=== PATIENT | female | born 1970 | race Two or more races ===

== ENCOUNTER 2019-04-30 15:41 | Inpatient (IN) | payer MEDICARE, OTHER ==
[~2019-04-30] VITALS: Ht 162.6 cm; Wt 90.7 kg
--- NOTE | 2019-04-30 16:13 | NUR ---
PATIENT EVALUATED BY DOCTOR IRIZARRY. PATIENT STATES HAD A RECENT HOSPITAL STAY AT [facility]
--- NOTE | 2019-04-30 16:16 | NUR ---
PATIENT HAS ABDOMINAL DIALYSIS CATHETER
[2019-04-30 16:21] LABS: BASOPHILS # (AUTO) 0.1 K/uL (0.0-8.0); BASOPHILS % (AUTO) 0.6 % (0.0-2.0); EOSINOPHILS # (AUTO) 0.4 K/uL (0.0-0.7); LYMPHOCYTES # (AUTO) 1.4 K/uL (20.0-40.0); LYMPHOCYTES % (AUTO) 13.7 % (20.5-51.5); MEAN CORPUSCULAR HEMOGLOBIN 34.3 uug (24.7-32.8); MEAN CORPUSCULAR HGB CONC 34 g/dL (32.3-35.6); MEAN CORPUSCULAR VOLUME 100.5 fL (75.5-95.3); MONOCYTES # (AUTO) 0.9 K/uL (2.0-10.0); MONOCYTES % (AUTO) 8.3 % (0.0-11.0); NEUTROPHILS # (AUTO) 7.5 K/uL (1.8-8.9); NEUTROPHILS % (AUTO) 73.4 % (38.5-71.5); PLATELET COUNT (AUTO) 188 K/uL (179-408); WHITE BLOOD COUNT (AUTO) 10.2 K/uL (3.8-11.8)
[2019-04-30 16:30] LABS: POTASSIUM 4.5 mmol/L (3.5-5.1)
--- NOTE | 2019-04-30 16:31 | NUR ---
CRITICAL LABS REPORTED. CREATINIE 12.5 AND HGB 6.4 INFORMED DOCTOR JUAN C.
[2019-04-30 16:32] LABS: HEMATOCRIT 18.7 % (31.2-41.9); HEMOGLOBIN 6.4 g/dL (10.9-14.3); RED BLOOD CELL COUNT(AUTO) 1.86 MIL/uL (3.63-4.92)
[2019-04-30 16:33] LABS: CREATININE 12.5 mg/dL (0.6-1.3)
[2019-04-30 16:35] LABS: BILIRUBIN,DIRECT 0.2 mg/dL (0.0-0.2); BILIRUBIN,TOTAL 0.6 mg/dL (0.2-1.0); TOTAL PROTEIN, SERUM 6.7 g/dL (6.4-8.2)
[2019-04-30 16:55] LABS: BAND % (MANUAL) 3 % (0-10); NEUTROPHILS % (MANUAL) 73 % (42-75)
[2019-04-30] MEDS ORDERED: HYDR-3974 PO (16:55)
[2019-04-30] MEDS ORDERED: ERGO2000 PO (16:55)
[2019-04-30] MEDS ORDERED: AMLO5TAB9 PO (16:55)
[2019-04-30] MEDS ORDERED: FURO-151 PO (16:55)
[2019-04-30] MEDS ORDERED: CARV25TA2 PO (16:55)
[2019-04-30] MEDS ORDERED: RANI150C4 PO (16:55)
[2019-04-30] MEDS ORDERED: ATOR80TA PO (16:55)
[2019-04-30] MEDS ORDERED: CALC667C6 PO (16:55)
[2019-04-30] MEDS ORDERED: INSU100I26 SQ (16:55)
[2019-04-30] MEDS ORDERED: AMOX1TAB16 PO (16:55)
[2019-04-30] MEDS ORDERED: BLOO-140 IN (16:55)
[2019-04-30] MEDS ORDERED: CALC600T12 PO (16:55)
[2019-04-30] MEDS ORDERED: ASPI81TA31 PO (16:55)
[2019-04-30] MEDS ORDERED: LORA10TA7 PO (16:55)
[2019-04-30] MEDS ORDERED: DOCU100C36 PO (16:55)
[2019-04-30 16:56] LABS: EOSINOPHILS % (MANUAL) 4 % (0-8); LYMPHOCYTES % (MANUAL) 14 % (20-40); MONOCYTES % (MANUAL) 6 % (2-10)
[2019-04-30] MEDS ORDERED: levoFLOXacin 750MG/D5W 150 ML IV ONE ×2 (18:15→19:04)
[2019-04-30] MEDS ORDERED: PIPERACILLIN SODIUM/TAZOBACTAM 3.375 G in IV DEXTROSE 5% 50 ML IV ONE (18:15)
[2019-04-30] MEDS ORDERED: PIPERACILLIN/TAZOBACTAM/D5W 50 ML IV ONE (19:04)
--- NOTE | 2019-04-30 19:29 | NUR ---
REPORT GIVEN TO LAW CLAYTON
[2019-04-30] MEDS ORDERED: ONDANSETRON 4 MG/2 ML VIAL IV PRN (20:15)
[2019-04-30] MEDS ORDERED: ACETAMINOPHEN 325 MG TABLET PO PRN (20:15)
[2019-04-30] MEDS ORDERED: HYDROCODONE/APAP 5-325MG TABLET PO PRN (20:15)
[2019-04-30] MEDS ORDERED: ALBUTEROL SULFATE 2.5 MG/3 ML NEBU NEB ONE (20:15)
[2019-04-30] MEDS ORDERED: DEXTROSE 50% 50 ML DISP.SYRIN IV PRN (20:15)
--- NOTE | 2019-04-30 20:18 | NUR ---
Report given to Skip CLAYTON Tele.
[2019-04-30] MEDS ORDERED: DOCUSATE SODIUM 250 MG CAPSULE PO SCH (21:00)
[2019-04-30] MEDS: BLOOD SUGAR DIAGNOSTIC 1 EACH STRIP VI SCH (21:49)
--- NOTE | 2019-04-30 21:52 | NUR ---
Received call from [facility] (lab), stating that patient has (+) antibody. Will consult with [facility] for blood, and blood will be ready by tomorrow. Pt is stable at this time, admission process still ongoing.
[2019-04-30] MEDS: INSULIN REGULAR, HUMAN 300 UNIT/3 ML VIAL SQ PRN (22:01)
--- NOTE | 2019-04-30 22:10 | NUR ---
Dr Gao seen and examined patient. Aware of blood availability, Nephro consult tomorrow to continue peritoneal dialysis. Patient is fully admitted at this time. Awake, alert and fully oriented. Skin is intact, slightly dry and scaly. BIlateral edema noted on ankle and feet, pedal pulses present, but weak on palpation. Peritoneal dialysis access site on anterior abdomen present, surrounding area, pink and normal skin color. Catheter intact and no signs of bleeding noted. Pt has chronic anemia, but not symptomatic at this time. BS checked: 175, due insulin given as ordered. Snacks placed at bedside. Kept pt comfortable in bed. All needs attended at this time NSR on tele at 64. Will continue to monitor.
[2019-05-01] VITALS: BP 136/91
[2019-05-01] MEDS ORDERED: GUAIFENESIN/DEXTROMETHORPHAN 5 ML UDC PO PRN (02:00)
--- NOTE | 2019-05-01 03:29 | NUR ---
Pt intermittently asleep. C/O Cough. Received new orders from Dr. Jin, noted and carried out. Robitussin DM 10 cc given as ordered, will continue to monitor.
[2019-05-01 04:00] VITALS: BP 120/38
[2019-05-01] MEDS: BLOOD SUGAR DIAGNOSTIC 1 EACH STRIP VI SCH ×3 (06:07→17:01)
[2019-05-01 06:19] LABS: BASOPHILS % (AUTO) 0.4 % (0.0-2.0); EOSINOPHILS # (AUTO) 0.4 K/uL (0.0-0.7); LYMPHOCYTES # (AUTO) 1.5 K/uL (20.0-40.0); LYMPHOCYTES % (AUTO) 14.3 % (20.5-51.5); MEAN CORPUSCULAR HEMOGLOBIN 33.4 uug (24.7-32.8); MEAN CORPUSCULAR HGB CONC 33 g/dL (32.3-35.6); MEAN CORPUSCULAR VOLUME 100.5 fL (75.5-95.3); MONOCYTES # (AUTO) 0.8 K/uL (2.0-10.0); MONOCYTES % (AUTO) 7.4 % (0.0-11.0); NEUTROPHILS # (AUTO) 7.6 K/uL (1.8-8.9); NEUTROPHILS % (AUTO) 73.9 % (38.5-71.5); PLATELET COUNT (AUTO) 183 K/uL (179-408); WHITE BLOOD COUNT (AUTO) 10.3 K/uL (3.8-11.8)
[2019-05-01 06:58] LABS: CREATININE 13.6 mg/dL (0.6-1.3)
[2019-05-01] MEDS ORDERED: PANTOPRAZOLE SODIUM 40 MG TABLET.DR PO SCH (07:00)
[2019-05-01 07:13] LABS: BILIRUBIN,TOTAL 0.7 mg/dL (0.2-1.0); MAGNESIUM 1.7 mg/dL (1.8-2.4); PHOSPHOROUS 4.7 mg/dL (2.5-4.9); TOTAL PROTEIN, SERUM 6.4 g/dL (6.4-8.2)
[2019-05-01 07:26] LABS: HEMATOCRIT 18.1 % (31.2-41.9)
[2019-05-01 08:00] LABS: THYROID STIMULATING HORMONE 128.47 mIU/mL (0.358-3.740)
[2019-05-01] MEDS ORDERED: CARVEDILOL 25 MG TABLET PO SCH (08:00)
[2019-05-01] MEDS ORDERED: MAGNESIUM OXIDE 400 MG TABLET PO ONE (08:45)
[2019-05-01] MEDS ORDERED: DOCUSATE SODIUM 100 MG CAPSULE PO SCH (09:00)
[2019-05-01] MEDS ORDERED: CALCIUM CARBONATE 600 MG TABLET PO SCH (09:00)
[2019-05-01] MEDS ORDERED: LORATADINE 10 MG TABLET PO SCH ×2 (09:00)
[2019-05-01] MEDS ORDERED: AMLODIPINE 5 MG TABLET PO SCH (09:00)
[2019-05-01] MEDS ORDERED: ASPIRIN 81 MG TAB.CHEW PO SCH (09:00)
[2019-05-01 09:04] LABS: EOSINOPHILS % (MANUAL) 1 % (0-8); LYMPHOCYTES % (MANUAL) 14 % (20-40); MONOCYTES % (MANUAL) 9 % (2-10)
[2019-05-01 09:06] LABS: BAND % (MANUAL) 1 % (0-10); NEUTROPHILS % (MANUAL) 75 % (42-75)
[2019-05-01] MEDS ORDERED: LEVOTHYROXINE SODIUM 100 MCG VIAL IV ONE (09:15)
[2019-05-01] MEDS ORDERED: EPOETIN ALFA 20,000 UNIT/ML ML SQ ONE (09:30)
[2019-05-01] MEDS: CALCIUM ACETATE 667 MG CAPSULE PO SCH ×3 (09:51→16:59)
--- NOTE | 2019-05-01 10:15 | NUR ---
Pt received, assessed, no acute distress. Pt compliant with medications, refusing Coreg due to BP 134/47, hr 74 choosing to take Amlodipine only. VSS. Pt able to make needs known. Plan for the day discussed, Pt focused on receiving peritoneal dialysis treatment, no one available to bring equipment from home, potentially will need to leave AMA to receive at home. MD and case fitter made aware. Breathing Tx requested from last night, 2L NC applied due to O2 sat 93% on RA. Reported effective. Call light within reach. All comfort and safety measures implemented. Will continue to monitor.
[2019-05-01 11:47] VITALS: BP 146/49
[2019-05-01] MEDS: INSULIN REGULAR, HUMAN 300 UNIT/3 ML VIAL SQ PRN ×2 (12:14→17:16)
--- NOTE | 2019-05-01 13:50 | NUR ---
Call received from lab, blood bank available at this time. Pt informed, refused Blood transfusion at this time. Pt states "I need to go home for my dialysis treatment, then I'll check with my doctor tomorrow". Pt teaching provided. Pt confirmed her sister will pick her up later today to take her home. Planning on leaving AMA. aware. Pt refusing food and water due to discomfort from storing excess fluid. Pt in stable condition at this time. Call light within reach. Will continue to monitor for safety.
[2019-05-01 15:08] VITALS: BP 113/34
--- NOTE | 2019-05-01 17:16 | NUR ---
Pt refused insulin coverage for BS 157. Pt signed AMA form, belongings collected, IV removed, intact. ID band removed. Pt walked self out to elevator safely with personal walker. Will remove Pt from system shortly.
[2019-05-02] MEDS ORDERED: LEVOTHYROXINE SODIUM 50 MCG TABLET PO SCH (07:00)
== END 2019-05-01 17:15 | disposition left against medical advice (07) | DRG 291 ==
LOC: ER 15:44 → TELE3 20:27
PROVIDERS: ADMIT Internal Medicine; ATTEND Internal Medicine
DX: I13.2 Hypertensive heart and chronic kidney disease with heart failure and with stage 5 chronic kidney disease, or end stage renal disease (principal); N18.6 End stage renal disease; E43 Unspecified severe protein-calorie malnutrition; D63.1 Anemia in chronic kidney disease; E11.22 Type 2 diabetes mellitus with diabetic chronic kidney disease; E11.40 Type 2 diabetes mellitus with diabetic neuropathy, unspecified; E03.9 Hypothyroidism, unspecified; E66.9 Obesity, unspecified; Z68.34 Body mass index [BMI] 34.0-34.9, adult; I50.9 Heart failure, unspecified; E11.65 Type 2 diabetes mellitus with hyperglycemia; E78.5 Hyperlipidemia, unspecified; Z79.899 Other long term (current) drug therapy; Z79.4 Long term (current) use of insulin; Z99.2 Dependence on renal dialysis; Q78.9 Osteochondrodysplasia, unspecified
CPT/HCPCS: 36415; 70030-TC; 71045; 83550; 83605; 83735; 84100; 84443; 85025; 85730; 86850; 86870; 86900; 86901; 86920; 87040; 90937; 93005; 94664; A4663; G0378; J0885; J1815; J1956; J2543; J3490